=== PATIENT | male | born 1985 ===

== ENCOUNTER 2025-04-13 10:00 | Day surgery (SDC) | payer OTHER ==
[~2025-04-13 10:00] MED LIST: Midazolam 1 MG/ML 2 ML SDV ONE; Propofol 200 MG/20 ML SDV ONE; fentaNYL 100 MCG/2 ML SDV ONE
[2025-04-13] MEDS: Lactated Ringers 1,000 ML IV SCH (10:39)
== END 2025-04-13 13:10 | disposition home or self-care (01) ==
LOC: JP.SDS 10:00
PROVIDERS: ATTEND Surgery
DX: Z12.11 Encounter for screening for malignant neoplasm of colon (principal); Z88.1 Allergy status to other antibiotic agents; Z79.899 Other long term (current) drug therapy
CPT/HCPCS: 45378; J2250; J2704; J3010; J7120